=== PATIENT | male | born 1955 | race Caucasian/White ===

== ENCOUNTER 2020-03-01 14:18 | Emergency (ER) | payer OTHER ==
[~2020-03-01] VITALS: Ht 182.9 cm; Wt 99.8 kg
[~2020-03-01 14:18] MED LIST: AMIT25 PO; CEPH500 PO; DICY20; IBUP800 PO; LISHYD1012 PO; OMEP20ER PO; OXYACE5T PO
[2020-03-01] MEDS ORDERED: Bactrim Ds Tab1 EACH PO (14:58)
[2020-03-01] MEDS ORDERED: HYDR1TAB94 PO (14:58)
[2020-03-01] MEDS ORDERED: CEPH500 PO (14:58)
== END 2020-03-01 15:10 | disposition home or self-care (01) ==
LOC: ER 14:18
DX: L03.116 Cellulitis of left lower limb (principal); I10 Essential (primary) hypertension; F32.9 Major depressive disorder, single episode, unspecified; Z79.899 Other long term (current) drug therapy
CPT/HCPCS: 99282

== ENCOUNTER → 2020-03-05 | Outpatient (CLI) | payer OTHER ==
[~2020-03-05] MED LIST changes: +Bactrim Ds Tab1 EACH PO; +HYDR1TAB94 PO
== END ==
LOC: LAB 13:19
DX: L02.91 Cutaneous abscess, unspecified (principal)
CPT/HCPCS: 87070; 87075; 87147; 87205

== ENCOUNTER 2021-07-27 09:35 | Day surgery (SDC) | payer OTHER ==
[~2021-07-27] VITALS: Ht 182.9 cm; Wt 99.1 kg
[~2021-07-27 09:35] MED LIST changes: +ALBU90OI INH; +Amitriptyline H10 MG PO; +HYDCHL12.5 PO; +ZESTRIL40 M1 PO
== END 2021-07-27 13:54 | disposition home or self-care (01) ==
LOC: ORSCSDS 09:35
PROVIDERS: Student in an Organized Health Care Education/Training Program
PROC: 0DBM8ZX Excision of Descending Colon, Via Natural or Artificial Opening Endoscopic, Diagnostic (ICD-10-PCS; principal; 2021-07-27 12:15)
PROC: 0DBN8ZX Excision of Sigmoid Colon, Via Natural or Artificial Opening Endoscopic, Diagnostic (ICD-10-PCS; principal; 2021-07-27 12:15)
PROC: 0DBL8ZX Excision of Transverse Colon, Via Natural or Artificial Opening Endoscopic, Diagnostic (ICD-10-PCS; principal; 2021-07-27 12:15)
PROC: 0DBK8ZX Excision of Ascending Colon, Via Natural or Artificial Opening Endoscopic, Diagnostic (ICD-10-PCS; principal; 2021-07-27 12:15)
DX: Z12.11 Encounter for screening for malignant neoplasm of colon (principal); Z86.010 Personal history of colon polyps; D12.2 Benign neoplasm of ascending colon; D12.3 Benign neoplasm of transverse colon; D12.4 Benign neoplasm of descending colon; D12.5 Benign neoplasm of sigmoid colon; K64.8 Other hemorrhoids; F32.A Depression, unspecified; I10 Essential (primary) hypertension; E78.00 Pure hypercholesterolemia, unspecified; K21.9 Gastro-esophageal reflux disease without esophagitis; Z87.891 Personal history of nicotine dependence; Z79.899 Other long term (current) drug therapy
CPT/HCPCS: 88305; J0461; J2405; J2704; J7120

== ENCOUNTER → 2022-10-01 | Outpatient (CLI) | payer OTHER ==
[2022-10-04 12:11] LABS: Stool Occult Bld Immuno 1 Negative (NEGATIVE)
== END | disposition home or self-care (01) ==
LOC: LAB SHORT 09:00
PROVIDERS: Nurse Practitioner Family
DX: K62.5 Hemorrhage of anus and rectum (principal)
CPT/HCPCS: 82274

== ENCOUNTER → 2024-03-09 | Outpatient (CLI) | payer MEDICARE, OTHER ==
[2024-03-09 13:52] LABS: CHOL/HDL RATIO 4.3; Cholesterol 218 mg/dL (50-200); HDL Cholesterol 51 mg/dL (>39); Low Density Lipoprotein Chol 151 mg/dL (0-110); Triglycerides 82 mg/dL (30-160); Very Low Density Lipoprot Chol 16 mg/dL (6-32)
== END | disposition home or self-care (01) ==
LOC: LAB SHORT 09:50 → LAB 09:50
PROVIDERS: Nurse Practitioner Family
DX: E78.00 Pure hypercholesterolemia, unspecified (principal); D64.9 Anemia, unspecified; Z79.899 Other long term (current) drug therapy
CPT/HCPCS: 80061; 82306; 82607; 82746; 83036

== ENCOUNTER 2024-06-02 08:52 | Emergency (ER) | payer OTHER, MEDICARE ==
[~2024-06-02] VITALS: Ht 182.9 cm; Wt 97.5 kg
[2024-06-02] MEDS ORDERED: Acetaminophen 325 MG TABLET PO ONE (09:15)
[2024-06-02] MEDS ORDERED: Ketorolac Tromethamine 30mg Vial IV ONE (09:15)
[2024-06-02 10:16] LABS: BASOPHILS ABSOLUTE AUTO 0.04 K/mm3 (0.00-0.23); BASOPHILS PERCENT AUTO 1 % (0-2); EOSINOPHILS ABSOLUTE AUTO 0.13 K/mm3 (0.00-0.68); EOSINOPHILS PERCENT AUTO 2 % (0-6); Hematocrit 39.2 % (37.0-53.0); Hemoglobin 13.8 g/dL (13.5-17.5); IMMATURE GRAN ABSOLUTE AUTO 0.01 K/mm3 (0.00-0.10); IMMATURE GRAN PERCENT AUTO 0 % (0-1); LYMPHOCYTES ABSOLUTE AUTO 1.11 K/mm3 (0.84-5.20); LYMPHOCYTES PERCENT AUTO 18 % (21-46); MONOCYTES ABSOLUTE AUTO 0.49 K/mm3 (0.16-1.47); MONOCYTES PERCENT AUTO 8 % (4-13); Mean Corpuscular HGB 30.6 pg (26.0-34.0); Mean Corpuscular HGB Conc 35.2 g/dL (31.5-36.5); Mean Corpuscular Volume 87 fL (80-100); Mean Platelet Volume 9.6 fL (9.1-12.4); NEUTROPHILS ABSOLUTE AUTO 4.55 K/mm3 (1.96-9.15); NEUTROPHILS PERCENT AUTO 72 % (41-73); Platelet Count 218 K/mm3 (150-400); RDW Coefficient Variation 12.9 % (11.7-14.2); RDW Standard Deviation 40.5 fL (35.1-46.3); Red Blood Cell Count 4.51 M/mm3 (4.30-5.90); White Blood Cell Count 6.33 K/mm3 (4.00-11.30)
[2024-06-02 10:18] LABS: Albumin, Blood 4.4 g/dL (3.4-5.0); Albumin/Globulin Ratio 1.4 (0.8-1.8); Bun/Creatinine Ratio 25.6 (12.0-20.0); Calcium, Blood 9.6 mg/dL (8.5-10.1); Creatinine, Blood 0.9 mg/dL (0.60-1.20); Globulin, Blood 3.2 g/dL (2.2-4.0); Potassium, Blood 3.7 mmol/L (3.5-5.5); Total Protein, Blood 7.6 g/dL (6.4-8.2)
[2024-06-02] MEDS ORDERED: Omeprazole 20 MG CapCR PO ONE (11:00)
[2024-06-02] MEDS ORDERED: Lisinopril 20 MG Tab PO ONE (11:00)
[2024-06-02] MEDS ORDERED: HydroCHLOROthiazide 25 mg Tab PO ONE (11:00)
[2024-06-02] MEDS ORDERED: HYDCHL12.5 PO (11:02)
[2024-06-02] MEDS ORDERED: OMEP20ER PO (11:02)
[2024-06-02] MEDS ORDERED: LISI20 PO (11:02)
[2024-06-02 11:15] VITALS: BP 159/94
== END 2024-06-02 11:23 | disposition home or self-care (01) ==
LOC: ER 08:52
PROVIDERS: Student in an Organized Health Care Education/Training Program
DX: S39.012A Strain of muscle, fascia and tendon of lower back, initial encounter (principal); M25.562 Pain in left knee; I10 Essential (primary) hypertension; K21.9 Gastro-esophageal reflux disease without esophagitis; Z88.1 Allergy status to other antibiotic agents; Z88.5 Allergy status to narcotic agent; Z79.899 Other long term (current) drug therapy; W01.0XXA Fall on same level from slipping, tripping and stumbling without subsequent striking against object, initial encounter
CPT/HCPCS: 71046; 72100; 73522; 73560-LT; 80053; 85025; 93005; 93010; 96374; 99284-25; A9270; J1885

== ENCOUNTER 2024-11-14 09:53 | Emergency (ER) | payer MEDICARE, OTHER ==
[~2024-11-14] VITALS: Ht 182.9 cm; Wt 88.9 kg
[~2024-11-14 09:53] MED LIST changes: +LISI20 PO
[2024-11-14 10:16] VITALS: BP 149/84
[2024-11-14] MEDS ORDERED: IBUP600 PO (10:53)
== END 2024-11-14 11:42 | disposition home or self-care (01) ==
LOC: ER 09:53
DX: M72.2 Plantar fascial fibromatosis (principal); M77.31 Calcaneal spur, right foot; Z88.1 Allergy status to other antibiotic agents; Z88.8 Allergy status to other drugs, medicaments and biological substances; Z79.899 Other long term (current) drug therapy; I10 Essential (primary) hypertension; K21.9 Gastro-esophageal reflux disease without esophagitis; Z90.49 Acquired absence of other specified parts of digestive tract
CPT/HCPCS: 73630; 99283-25

== ENCOUNTER 2024-11-29 07:33 | Emergency (ER) | payer MEDICARE, OTHER ==
[~2024-11-29] VITALS: Ht 182.9 cm; Wt 95.2 kg
[~2024-11-29 07:33] MED LIST changes: +IBUP600 PO
[2024-11-29] MEDS ORDERED: Ketorolac Tromethamine 15mg Vial IM ONE (08:10)
[2024-11-29] MEDS ORDERED: Naprosyn500 MG PO (08:20)
[2024-11-29 08:46] VITALS: BP 143/92
== END 2024-11-29 08:53 | disposition home or self-care (01) ==
LOC: ER 07:33
DX: M72.2 Plantar fascial fibromatosis (principal)
CPT/HCPCS: 96372; 99283-25; J1885